=== PATIENT | male | born 1970 | race Caucasian/White ===

== ENCOUNTER 2021-01-28 14:25 | Outpatient (CLI) | payer MEDICARE, SELFPAY ==
--- NOTE | ~2021-01-28 | CT_ITS ---
EXAMINATION: CT abdomen pelvis w con DATE: 01/28/2021 14:43 INDICATION: Epigastric abdominal pain TECHNIQUE: Computed tomography (CT) of the abdomen and pelvis was performed with 100 cc Omnipaque 350 intravenous contrast. Automated exposure control and iterative reconstruction technique were employe d. Exam dose: 377.28 mGy-cm total exam DLP. COMPARISON: None. FINDINGS: Mild emphysematous changes are noted. No infiltrate or consolidation in the lower lung zone s. Normal heart size. No pericardial or pleural effusion. There is extensive calcification of the gallbladder wall. No pericholecystic fluid or fat stranding. No bile duct or pancreatic duct dilatation. Normal morphology of the adrenal glands. There are numerous splenic and occasional hepatic calcified granulomas. No splenomegaly. No hepatic, splenic, pancreatic, and adrenal or renal space-occupying mass lesion is detected. No urinary tract c alculus or hydroureteronephrosis is detected. Normal caliber of the abdominal aorta. No intraperitoneal or retroperitoneal or pelvic mass lesion or adenopathy or ascites. No CT evidence of appendicitis. No bowel obstruction, bowel wall thickening, pneumatosis or intraperi toneal free air. Mild prostate calcification. The urinary bladder is unremarkable. Small fat-containing umbilical hernia. Included skeletal structures are unremarkable. IMPRESSION: Porcelain gallbladder Emphysema Reviewed, dictated and finalized at [facility]. Reviewed, dictated and finalized at [facility].
== END 2021-01-28 14:26 | disposition home or self-care (01) ==
PROVIDERS: PCP Internal Medicine; Visit Provider Surgery
DX: R10.13 Epigastric pain (principal); Z87.19 Personal history of other diseases of the digestive system; J43.9 Emphysema, unspecified
CPT/HCPCS: 74177; Q9967

== ENCOUNTER 2021-03-09 01:04 | Day surgery (SDC) | payer MEDICARE, SELFPAY ==
[2021-03-07 14:08] VITALS: BMI 24.2
--- NOTE | 2021-03-07 14:17 | PC.NURSE ---
Report to the Outpatient Waiting Room, entrance under the green pavilion located off [facility], at time 0730 on date 03/09/21. OR Time: 0930. - You and your visitor will be asked a series of questions to screen for COVID 19 for your protection. - A mask is required within the hospital. - Only one visitor is allowed at this time. Patient visitors will be guided where to wait when not with patient. Preoperative COVID Testing Requirements: No COVID Test needed if: (proof is required; if not received patient will have Rapid Test prior to entry) - Patient has received COVID Vaccine at least 14 days prior to procedure date or - Patient has positive COVID test result within last 90 days of surgery date. COVID Test needed if above criteria is not met If not COVID vaccinated a COVID test must be conducted within 72 hours of surgery and patient is asked to isolate self from time of testing until procedure. You will go to the [facility] for your COVID testing. The [facility] is located at the corner of [address] [facility]. You will only be called if COVID results are positive and your surgeon may reschedule your elective surgery date. Patients may have clear liquids (water, carbonated beverages, clear teas, apple juice) until 3 hours prior to surgery with a maximum of 20 ounces. - No food from midnight until time of surgery - Infants may have breast milk until 4 hours before surgery, infant formula 6 hours prior to surgery. - Children will be allowed to drink immediately following surgery. If applicable, please bring a bottle or sippy cup to assist with drinking. Juice, water, soda, and popsicles are readily available. For infants on formula, please bring formula the day of surgery. Pacifiers are allowed. Take the following medications with a SIP of water the morning of surgery: PAIN PILL (IF NEEDED) Medications to discontinue per physician: N/A Date to take last dose: N/A Please no make-up, nail sinhala, hairspray, perfume, deodorant, or body powder the day of surgery. No jewelry (including any body piercings) or valuables the day of surgery, leave them at home. Please take a shower or bath the night before, or the morning of, surgery with an antibacterial soap. Wear comfortable, loose fitting clothing. Children are encouraged to wear pajamas. HIBICLENS SHOWER - Jewelry must be removed prior to entering the operating room. Rings and piercings that are not removed may be cut off. - The hospital will not accept responsibility for valuables. - Please leave all valuables, including medications, at home the day of surgery. If you are going home after surgery, a licensed stock car driver must drive you home. - NO public transportation without another adult. - We recommend that an adult stay with you for 24 hours following discharge. - We also recommend that you do not drive, make important decision, drink alcoholic beverages, or take any drugs that were not prescribed by your health care provider for at least 24 hours after your discharge time. For Pediatric surgeries, we recommend two adults accompany the child home (only one inside the building at this time). Follow any additional instructions given to you from your surgeon. Telephone instructions given to XI BLOUNT and asked if any additional questions and then verbalized understanding. Patient advised to call surgeon office or pre surgery nurse liaison [phone] if any additional questions.
[2021-03-09] VITALS (9 sets, daily range): BP systolic 99–128; BP diastolic 62–85; PULSE 70–107; RESP 12–20; TEMP 36–36.4; O2SAT 96–100
--- NOTE | 2021-03-09 08:10 | ECG_ITS ---
Measurements Intervals [place] Rate: 82 P: 63 TX: 130 QRS: 64 QRSD: 84 T: 68 QT: 347 QTc: 406 Interpretive Statements SINUS RHYTHM RSR' IN V1 OR V2, PROBABLY NORMAL VARIANT NORMAL ECG Electronically Signed On 03-09-2021 8:47:57 [employer] by Santi Donald D.O.
[2021-03-09] MEDS: LACTATED RINGERS 1,000 ML 30 ML IV CONT ×2 (09:00→11:47)
[2021-03-09] MEDS: KETOROLAC 15 MG/ML VIAL (*BKC) IV PUSH (09:02)
[2021-03-09] MEDS: ACETAMINOPHEN 500 MG TABLET 1000 MG PO (09:02)
--- NOTE | 2021-03-09 09:06 | WPDANESEPPF ---
Anes - Initial Pre Proc Eval Procedure: Operation Date: 03/09/21 09:30 Proposed Procedures p Laparoscopic Cholecystectomy - Kumar Ferrer MD Date/Time: 03/09/21 09:06 Surgeon: Kumar Ferrer MD Pre Op Diagnosis: Biliary Pancreatitis Patient Data Age: 50 Gender: M Height: 1.78 m Weight: 76.6 kg Last Vital Signs Temp 36.4 C 03/09/21 07:45 Pulse 107 H 03/09/21 07:45 BP 103/73 03/09/21 07:45 Pulse Ox 98 03/09/21 07:45 Allergies Allergy/AdvReac Type Severity Reaction Status Date / Time No Known Allergies Allergy Mild Verified 03/09/21 09:00 Home Medications Medication Instructions Recorded Confirmed Type trazodone 100 mg tablet 200 mg PO QHS PRN tablet 09/24/20 03/09/21 History oxycodone 10 mg tablet 10 mg PO Q6H PRN #40 tablet 02/24/21 03/09/21 Rx Patient hx anesthesia problems: none Family hx anesthesia problems: none Results Review: All pre-operative results and documents have been reviewed as part of the pre-operative evaluation. [facility] Past Medical History Medical History Arthritis Bipolar 1 disorder Chronic pain COVID-19 Depression Depression CADY (generalized anxiety disorder) History of kidney stones Other and unspecified hyperlipidemia Pancreatitis due to biliary obstruction PTSD (post-traumatic stress disorder) Rheumatoid arthritis of unspecified site with involvement of other organs and systems Family History Family History Mother , age 50 Asthma Acute myocardial infarction Depression Anxiety Father , age 60 Alcoholism Cancer Sibling Asthma Diabetes mellitus Hypertension Sibling Depression Sibling Depression Mother , age 50 Acute myocardial infarction Social History Social History Smoking packs per day: 1 Smoking cigarettes per day: 20.0 Years smoked: 40 Smoking pack-years: 40.00 Smoking status: Current every day smoker Tobacco type: cigarettes Alcohol intake: former Alcohol use details: LAST 6-8 MONTHS AGO - WAS 2/WEEK Substance use: never Substance use type: does not use Living arrangements: with family Additional occupation/education comments: disabled Spiritual care concerns: No Anes - Eval Final PreProcedure Day of Procedure 03/09/21 09:06 Patient weight: normal Heart: regular rate and rhythm Lungs: clear to auscultation Airway: Mallampati scale class II Neurological: alert and oriented Last oral intake: >/= 8 hours ASA classification: II Emergent: no Anesthetic plan: proceed Anesthesia type and monitoring: general ETT and standard monitoring Results Review: All pre-operative results and documents have been reviewed as part of the pre-operative evaluation. Informed Consent: The patient's anesthetic plan and its attendant risks and benefits were discussed with the patient/family/POA. Questions were solicited and answers provided to the satisfaction of the patient/family/POA.
[2021-03-09 09:12] LABS: Basophils Absolute Auto 0.1 K/mm3 (0.0-0.1); Basophils Percent Auto 1.2 % (0.2-1.2); Eosinophils Absolute Auto 0.3 K/mm3 (0-0.3); Eosinophils Percent Auto 2.9 % (0-4.4); Hematocrit 41.8 % (42.0-52.0); Hemoglobin 14.8 g/dL (14.0-18.0); Immature Granulocyte Absolute 0.04 K/mm3 (0.00-0.031); Immature Granulocyte Percent A 0.3 % (0-0.5); Lymphocytes Percent Auto 36.7 % (18.3-44.2); Mean Corpuscular HGB Conc 35.4 g/dl (32-36); Mean Corpuscular Hemoglobin 34.3 pg (26-34); Mean Corpuscular Volume 96.8 fl (80-100); Mean Platelet Volume 8.6 fl (7.4-10.4); Monocytes Absolute Auto 0.9 K/mm3 (0.1-0.6); Monocytes Percent Auto 7.7 % (2.6-8.5); Neutrophils Percent Auto 51.2 % (45.5-73.1); Platelet Count Result 330 k/mm3 (150-375); Red Blood Count 4.32 M/mm3 (4.6-6.20); Red Cell Distribution Width 15.4 % (11.5-14.5); White Blood Count 11.7 K/mm3 (4.5-10.0)
[2021-03-09 09:24] LABS: Alanine Aminotransferase 23 U/L (4-50); Albumin Level 3.6 g/dL (3.5-5.1); Alkaline Phosphatase 177 U/L (38-126); Amylase 52 U/L (30-110); Aspartate Amino Transferase 27 U/L (17-59); Bilirubin,Total 0.3 mg/dL (0.2-1.3); Lipase 23 U/L (23-300)
--- NOTE | 2021-03-09 09:31 | WPDHPUPDATE1 ---
History and Physical Update Update Date/Time: 03/09/21 09:31 History and Physical has been reviewed, including an updated exam of the patient. There are NO changes in the patient's condition. Risks, benefits, and alternatives have been discussed and questions answered. Patient agrees to proceed with procedure.
[2021-03-09 10:02] LABS: Anion Gap 6 mmol/L (8-16); Blood Urea Nitrogen 22 mg/dL (9-20); Calcium 8.9 mg/dL (8.4-10.2); Carbon Dioxide 24 mmol/L (22-30); Chloride 106 mmol/L (98-107); Estimated CRCL calculation 87 ml/min; Estimated Glomerular Filt Rate > 60; Glucose 102 mg/dL (65-110); Sodium 136 mmol/L (137-145)
[2021-03-09] MEDS: ceFAZolin 2 GM/D5W 50 ML 2 GM/50 ML BAG IVPB (10:53)
[2021-03-09] MEDS: BUPIVACAINE HCL 0.5% PF 30 ML VIAL INFILTRATE (11:15)
--- NOTE | 2021-03-09 11:50 | W.PM.PROC2 ---
Procedure Note - Detailed Date of Procedure 03/09/21 Pre-op Diagnosis Biliary Pancreatitis, porcelain gallbladder Post-op Diagnosis same Procedure Performed Laparoscopic cholecystectomy Surgeon uKmar Ferrer MD [employer] Rowan Chisholm [facility] Anesthesia general and local Indications Patient presented with pancreatitis last November. It was a pretty severe case and imaging showed that he had a porcelain gallbladder with gallstones. He was treated for this at an outside hospital but has continued to have symptoms of chronic cholecystitis. He is taken to surgery now for laparoscopic cholecystectomy. Findings Chronic inflammation and very thickened hardened gallbladder that appeared to be full of stones. No biliary ductal dilatation appreciated. No liver abnormalities noted. Description of Procedure Patient was taken to surgery and induced into general anesthesia. The abdomen is prepped and draped. Trocars were placed in the usual fashion using 1% lidocaine with epinephrine and applied Medical optical trocars. A 5 mm camera was used. The gallbladder was contracted and very firm if not hard. We used a toothed tenaculum grasper and still really could not grasp the gallbladder. We then used a grasper but used it more as a retractor as the wall of the gallbladder was to hardened and the gallbladder was full of stones such that it could not be grasped. The gallbladder was in this manner retracted anterosuperiorly. I was able to place traction on the infundibulum and expose the cholecystohepatic triangle. Dissection was carried out in the triangle of Calot and the cystic duct and cystic artery were dissected out. We dissected the gallbladder off the liver at its lower 3rd. Critical view was achieved. I then securely clipped and divided the cystic duct and cystic artery. The gallbladder was then further dissected free of its peritoneal attachments to the liver. Once freed, it was placed in an Endo-Catch bag and removed via the 10 11 epigastric trocar site. We then replaced the epigastric trocar and used a towel clip to occlude the site so we could reinsufflated. The liver was retracted and we exposed the right upper quadrant and gallbladder fossa. It was irrigated and suctioned. Cautery had been used for hemostasis throughout the surgery. No additional bleeding or other problems were noted. We irrigated and suctioned the area out repeatedly. All looked good. We then evacuated CO2 and removed the trocar sleeves. Fascia at the epigastric trocar site was closed with running 0 Vicryl suture. The subQ was closed with interrupted 3 0 Vicryl suture. All skin wounds were closed with subcuticular 4-0 Monocryl skin suture. The wounds were dressed with Exofin surgical adhesive. The patient was awakened and taken to recovery in good condition. Sponge and needle counts were correct x2. Estimated Blood Loss -10 Drains No Packing No Pathology yes (Gallbladder) Complications No immediate complications Condition stable Disposition PACU
[2021-03-09] MEDS: fentaNYL CITRATE INJ (*CRX) 100 MCG/2 ML VIAL 25 MCG IV PUSH ×8 (12:06→12:38)
[2021-03-09] MEDS: oxyCODONE HCL (*CRX) 5 MG TAB IR PO (13:06)
== END 2021-03-09 14:31 | disposition home or self-care (01) ==
PROVIDERS: PCP Internal Medicine; Visit Provider Surgery
PROC: 0FT44ZZ Resection of Gallbladder, Percutaneous Endoscopic Approach (ICD-10-PCS; CPT 47562; principal; 2021-03-09 09:30)
DX: K85.10 Biliary acute pancreatitis without necrosis or infection (principal); K82.8 Other specified diseases of gallbladder; K80.10 Calculus of gallbladder with chronic cholecystitis without obstruction; F41.8 Other specified anxiety disorders; F31.9 Bipolar disorder, unspecified; F41.1 Generalized anxiety disorder; E78.5 Hyperlipidemia, unspecified; E78.49 Other hyperlipidemia; F43.10 Post-traumatic stress disorder, unspecified; M06.9 Rheumatoid arthritis, unspecified; F17.210 Nicotine dependence, cigarettes, uncomplicated
CPT/HCPCS: 47562; 36415; 80048; 80076; 82150; 83690; 85025; 86850; 86900; 86901; 88304; 93005; A9270; C1713; J0690; J1100; J1885; J2250; J2405; J2704; J2710; J3010; J7120